=== PATIENT | female | born 1945 | race Caucasian/White ===

== ENCOUNTER 2016-09-24 10:08 | Emergency (ER) | payer OTHER ==
[~2016-09-24] VITALS: Ht 162.6 cm; Wt 67.0 kg
[~2016-09-24 10:08] MED LIST: FOSA70TA PO; LEVO50TA51 PO; LIPI20TA PO; LISI-366 PO; PRIL20TA2 PO
[2016-09-24 10:14] VITALS: BP 155/97; PULSE 70; RESP 16; TEMP 97.8; O2SAT 99
[2016-09-24] MEDS ORDERED: LISI-515 PO (10:33)
[2016-09-24] MEDS ORDERED: ATOR40TA16 PO (10:33)
[2016-09-24] MEDS ORDERED: ALEN1TAB48 PO (10:33)
[2016-09-24] MEDS ORDERED: LEVO50TA53 PO (10:33)
[2016-09-24] MEDS ORDERED: FISHCAP4 PO (10:33)
[2016-09-24] MEDS ORDERED: MILK1CAP PO (10:33)
[2016-09-24 10:55] LABS: AUTOMATED NEUTROPHIL # 2.7 TH/MM3 (1.8-7.7); BASOPHIL % 0.4 % (0.0-2.0); EOSINOPHIL # 0.1 TH/MM3 (0-0.4); EOSINOPHIL % 3.2 % (0.0-4.0); HEMATOCRIT 37.3 % (35.0-46.0); HEMO FLAGS DIFF FINAL; LYMPH % 32.3 % (9.0-44.0); LYMPHOCYTE # 1.5 TH/MM3 (1.0-4.8); MEAN CELL VOLUME 95.5 FL (80.0-100.0); MEAN CORPUSCULAR HEMOGLOBIN 32.7 PG (27.0-34.0); MEAN CORPUSCULAR HGB CONC 34.3 % (32.0-36.0); MONO % 6.7 % (0.0-8.0); NEUT % 57.4 % (16.0-70.0); PLATELET COUNT 189 TH/MM3 (150-450); RED CELL DISTRIBUTION WIDTH 12.6 % (11.6-17.2); WHITE BLOOD COUNT 4.6 TH/MM3 (4.0-11.0)
[2016-09-24 11:03] LABS: CHLORIDE 107 MEQ/L (98-107); POTASSIUM 4.3 MEQ/L (3.5-5.1); SODIUM (NA) 142 MEQ/L (136-145)
[2016-09-24 11:07] LABS: ANION GAP 9 MEQ/L (5-15); BICARBONATE 26.5 MEQ/L (21.0-32.0); BLOOD UREA NITROGEN 15 MG/DL (7-18)
[2016-09-24 11:10] LABS: ALT (GPT) 25 U/L (10-53); AST (GOT) 17 U/L (15-37); GLOMERULAR FILTRATION RATE 74 ML/MIN (>89)
[2016-09-24 11:12] LABS: TOTAL BILIRUBIN ADULT 0.3 MG/DL (0.2-1.0)
[2016-09-24 11:13] LABS: ALKALINE PHOSPHATASE 63 U/L (45-117)
--- NOTE | 2016-09-24 11:17 | RADHPO ---
EXAM DATE/TIME: 09/24/2016 10:46 [place] COMPARISON: No previous studies available for comparison. INDICATIONS : Off and on shooting pains up right arm into right jaw MEDICAL HISTORY : None. SURGICAL HISTORY : None. ENCOUNTER: Initial ACUITY: 1 week PAIN SCORE: 8/10 LOCATION: Right neck FINDINGS: AP, lateral and oblique views of the cervical spine were obtained and demonstrate mild osteopenia and normal alignment. There are degenerative disc changes at the C4-5, C5-6 and C6-7 levels with disc sp megan narrowing and hypertrophic change. There are mild degenerative change involving the uncovertebral joints with mild encroachment on the neural foramina on the left at the C4-5 and C5-6 levels and marva aterally at the C6-7 level. The dens is intact and the prevertebral soft tissues are unremarkable. CONCLUSION: 1. Degenerative disc change at the C4-5 through C6-7 levels. 2. Degenerative joint changes. Wilfredo Bernabe MD on September 24, 2016 at 11:13 Board Certified Radiologist. This report was verified electronically.
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
[2016-09-24 11:55] VITALS: BP 138/74
--- NOTE | 2016-09-24 21:52 | EKG ---
Date Performed: 09/24/2016 Time Performed: 10:39:06 PTAGE: 71 years EKG: Sinus rhythm Normal ECG PREVIOUS TRACING : 11/20/2013 07.05 DOCTOR: Shannan Camarena Interpretating Date/Time 09/24/2016 21:49:08
== END 2016-09-24 11:58 | disposition home or self-care (01) ==
LOC: PHED 10:08
DX: M54.12 Radiculopathy, cervical region (principal); E78.00 Pure hypercholesterolemia, unspecified; I10 Essential (primary) hypertension; M19.90 Unspecified osteoarthritis, unspecified site
CPT/HCPCS: 72050; 80053; 84484; 85025; 93005